=== PATIENT | male | born 1975 | race Two or more races ===

== ENCOUNTER 2016-08-21 06:51 | Inpatient (IN) | payer MEDICAID, OTHER ==
[~2016-08-21] VITALS: Ht 182.9 cm; Wt 94.4 kg
[2016-08-21] MEDS ORDERED: cloNIDine HCL 0.1 MG TAB ONE (07:19)
[2016-08-21] MEDS ORDERED: cloNIDine HCL 0.1 MG TAB PO ONE (07:30)
[2016-08-21 08:18] LABS: Albumin 4.3 g/dL (3.4-5.0); BUN/Creatinine Ratio 17.5; Calcium 8.7 mg/dL (8.5-10.1); Potassium 3.9 mmol/L (3.5-5.1)
[2016-08-21 08:21] LABS: Bilirubin, Total 0.5 mg/dL (0.2-1.0); Total Protein 7.7 g/dL (6.4-8.2)
[2016-08-21 08:28] LABS: Basophils # (auto) 0 uL; Basophils % (auto) 0.3 % (0.0-2.0); Eosinophils # (auto) 0.1 uL; Eosinophils % (auto) 0.5 % (0.0-7.0); Hematocrit 45.8 % (41.0-53.0); Hemoglobin 15.3 g/dL (13.5-17.5); Lymphocytes # (auto) 1.6 uL; Lymphocytes % (auto) 12.6 % (10.0-50.0); Mean Corpuscular Hemoglobin 29.7 pg (28.0-32.0); Mean Corpuscular Hgb Conc. 33.5 g/dL (32.0-36.0); Mean Corpuscular Volume 88.7 fL (80.0-100.0); Mean Platelet Volume 8.4 fL (7.4-10.4); Monocytes # (auto) 0.4 uL; Monocytes % (auto) 3.3 % (0.0-12.0); Neutrophils # (auto) 10.8 uL; Neutrophils % (auto) 83.3 % (37.0-80.0); Platelet Count (auto) 431 10^3/uL (140-450); Red Cell Distribution Width 15.4 % (11.6-16.0)
[2016-08-21] MEDS ORDERED: ONDANSETRON HCL 4 MG/2 ML VIAL IV ONE (09:15)
[2016-08-21] MEDS ORDERED: KETOROLAC TROMETH 30 MG/ML 1ML VIAL IV ONE (09:15)
[2016-08-21] MEDS ORDERED: SODIUM CHLORIDE 0.9% 1,000 ML IV ONE ×2 (09:15→09:30)
[2016-08-21 09:19] LABS: Urine Bilirubin Negative (Negative); Urine Ca Oxalate Crystal FEW (None Seen); Urine Color Yellow (Yellow); Urine Glucose Normal (Normal); Urine Ketone Negative (Negative); Urine Mucus FEW (None Seen); Urine Nitrite Negative (Negative); Urine RBC 247 /hpf (0 - 3); Urine Urobilinogen Normal (Negative); Urine pH 5.5 (5.0-8.0)
[2016-08-21 09:26] LABS: Urine Blood 2+ /uL (Negative)
[2016-08-21] MEDS: SODIUM CHLORIDE 0.9% 1,000 ML IV SCH ×2 (11:12→23:59)
[2016-08-21] MEDS ORDERED: DEXTROSE (50%) 50ML SYRG IV PRN (11:15)
[2016-08-21] MEDS ORDERED: LORazepam 0.5 MG TAB PO PRN (11:15)
[2016-08-21] MEDS ORDERED: cefTRIAXone 1GM/50ML D5W 50 ML IV ONE (11:15)
[2016-08-21] MEDS ORDERED: TEMAZEPAM 15 MG CAP PO PRN (11:15)
[2016-08-21] MEDS ORDERED: HYDROcodone-ACET 5/325MG TAB PO PRN (11:15)
[2016-08-21] MEDS ORDERED: PROMETHAZINE HCL 25 MG/ML 1ML IV PRN (11:15)
[2016-08-21] MEDS ORDERED: MORPHINE SULF INJ 2 MG/ML SYRINGE 1ML IV PRN (11:15)
[2016-08-21] MEDS: ACCU-CHEK COMFORT CURVE STRIP VI SCH ×3 (12:01→22:28)
[2016-08-21 14:00] VITALS: BP 131/70
[2016-08-21] MEDS ORDERED: ACETTAB PO (14:04)
[2016-08-21] MEDS: ACETAMINOPHEN 500 MG TAB PO PRN (14:20)
[2016-08-21] MEDS ORDERED: LISI10TA6 PO (14:21)
[2016-08-21] MEDS ORDERED: LISINOPRIL 10 MG TAB PO ONE (16:00)
[2016-08-21] MEDS ORDERED: cloNIDine HCL 0.1 MG TAB PO PRN (16:00)
[2016-08-21 16:50] VITALS: BP 160/112
[2016-08-21] MEDS ORDERED: TAMSULOSIN HYDROCHLORIDE 0.4 MG CAP PO ONE (18:00)
[2016-08-21 20:00] VITALS: BP 136/86
[2016-08-21 21:30] VITALS: BP 167/83
[2016-08-21 22:00] VITALS: BP 136/86
[2016-08-21] MEDS ORDERED: FAMOTIDINE 20 MG TAB PO SCH (22:00)
[2016-08-22 04:46] VITALS: BP 110/52
[2016-08-22] MEDS: ACETAMINOPHEN 500 MG TAB PO PRN (05:47)
[2016-08-22] MEDS: ACCU-CHEK COMFORT CURVE STRIP VI SCH (05:47)
[2016-08-22 06:03] LABS: Basophils # (auto) 0 uL; Basophils % (auto) 0.4 % (0.0-2.0); Eosinophils # (auto) 0.1 uL; Eosinophils % (auto) 0.9 % (0.0-7.0); Hematocrit 39.7 % (41.0-53.0); Lymphocytes # (auto) 2.2 uL; Mean Corpuscular Hemoglobin 29.1 pg (28.0-32.0); Mean Corpuscular Hgb Conc. 32.8 g/dL (32.0-36.0); Mean Corpuscular Volume 88.7 fL (80.0-100.0); Mean Platelet Volume 8.2 fL (7.4-10.4); Monocytes # (auto) 0.5 uL; Neutrophils # (auto) 3.9 uL; Neutrophils % (auto) 57.7 % (37.0-80.0); Platelet Count (auto) 320 10^3/uL (140-450); Red Cell Distribution Width 15.2 % (11.6-16.0); White Blood Cell 6.7 10^3/uL (4.4-10.8)
[2016-08-22 08:56] VITALS: BP 155/108
[2016-08-22] MEDS ORDERED: cefTRIAXone 1GM/50ML D5W 50 ML IV SCH (09:00)
[2016-08-22] MEDS ORDERED: LISINOPRIL 10 MG TAB PO SCH (10:00)
[2016-08-22] MEDS ORDERED: TAMSULOSIN HYDROCHLORIDE 0.4 MG CAP PO SCH (10:00)
== END 2016-08-22 09:30 | disposition home or self-care (01) | DRG 465 ==
LOC: ER 06:51 → TELE 06:52 → WEST WING 14:00
PROVIDERS: ADMIT Internal Medicine; ATTEND Internal Medicine
DX: N13.2 Hydronephrosis with renal and ureteral calculous obstruction (principal); E11.65 Type 2 diabetes mellitus with hyperglycemia; I10 Essential (primary) hypertension; R31.9 Hematuria, unspecified; G43.909 Migraine, unspecified, not intractable, without status migrainosus; D72.825 Bandemia; F17.210 Nicotine dependence, cigarettes, uncomplicated; Z87.442 Personal history of urinary calculi; Z83.3 Family history of diabetes mellitus; Z82.49 Family history of ischemic heart disease and other diseases of the circulatory system; Z82.3 Family history of stroke; Z90.49 Acquired absence of other specified parts of digestive tract
CPT/HCPCS: 36415; 71010; 74176; 80053; 81001; 82360; 82962; 83036; 85025; 96361; 96365; 96375; J0696; J1885; J2405